=== PATIENT | male | born 1975 | race African-American/Black ===

== ENCOUNTER 2018-08-17 05:51 | Emergency (ER) | payer MEDICAID ==
[2018-08-17] MEDS: IBUPROFEN 600 MG TAB PO (07:15)
== END 2018-08-17 08:32 | disposition home or self-care (01) ==
LOC: FTE 05:51
DX: J02.9 Acute pharyngitis, unspecified (principal); Z87.891 Personal history of nicotine dependence
CPT/HCPCS: 87880; 99283